=== PATIENT | female | born 1990 | race Caucasian/White ===

== ENCOUNTER 2020-07-16 18:49 | Emergency (ER) | payer OTHER, BC ==
[2020-07-16 19:01] VITALS: BP 129/88
[2020-07-16] MEDS ORDERED: LIDOCAINE 1% INJ-PF (10 MG/ML) 30 ML SDV INJ ONE (19:22)
[2020-07-16] MEDS ORDERED: IBUPROFEN 800 MG TABLET PO ONE (19:23)
--- NOTE | 2020-07-16 19:24 | ER Document Report ---
HPI - HPI Patient complains to provider of: left thumb laceration Time Seen by Provider: 07/16/20 19:17 Pain Level: 2 Notes: 30-year-old female to the emergency department with complaints of a left thumb laceration that occurred just prior to arrival. 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 She states that she needed to 2 inch wrap instead of a 4 inch. Thus, she took a scalpel and try to cut the wrap in half. Unfortunately, she cut her arm. She is up-to-date on her tetanus shot. She denies any other injuries. She is right-hand dominant. - CONSTITUTIONAL Constitutional: DENIES: Fever, Chills - EENT EENT: DENIES: Sore Throat, Ear Pain, Congestion - NEURO Neurology: DENIES: Headache, Weakness, Vision blurred, Dizzinesss / Vertigo - CARDIOVASCULAR Cardiovascular: DENIES: Chest pain - RESPIRATORY Respiratory: DENIES: Trouble Breathing, Coughing - GASTROINTESTINAL Gastrointestinal: DENIES: Abdominal Pain, Nausea, Patient vomiting, Diarrhea - MUSCULOSKELETAL Musculoskeletal: REPORTS: Extremity pain Notes: left thumb pain from laceration - DERM Skin Color: Normal Skin Problems: Laceration - laceration to the distal portion of the left thumb Past Medical History - General Information source: Patient - Social History Smoking Status: Never Smoker Frequency of alcohol use: Occasional Family History: Reviewed & Not Pertinent Patient has homicidal ideation: No Vertical Provider Document - CONSTITUTIONAL Agree With Documented VS: Yes Exam Limitations: No Limitations General Appearance: WD/WN, No Apparent Distress - HEENT HEENT: Atraumatic, Normocephalic, PERRLA - NECK Neck: Normal Inspection, Supple - RESPIRATORY Respiratory: Breath Sounds Normal, No Respiratory Distress. negative: Rales, Rhonchi, Wheezing - CARDIOVASCULAR Cardiovascular: Regular Rate, Regular Rhythm, No Murmur - GI/ABDOMEN Gastrointestinal: Abdomen Soft, Abdomen Non-Tender - MUSCULOSKELETAL/EXTREMETIES Notes: There is a 2 cm laceration to the distal portion of the left thumb. Does not involve the nail. It is oozing a little bit of blood. There is no evidence for tendon laceration. There is 5 out of 5 strength against resistance in testing of the flexor tendons as well as extensor tendon. No snuffbox tenderness. Cap refill is less than 2-second. There is no evidence for vascular damage. Radial pulses intact and equal. Handgrip is 5 out of 5 bilaterally. - NEURO Level of Consciousness: Awake, Alert, Appropriate - DERM Integumentary: Warm, Dry, Laceration - see MS for details on thumb laceration Course - Re-evaluation Re-evalutation: 07/16/20 21:19 Impression: Left thumb laceration. Patient tolerated repair well. 3 sutures were placed. Suture removal in 7 days. Return if any worsening symptoms. Patient agrees - Vital Signs Vital signs: Temp Pulse Resp BP Pulse Ox 97.7 F 80 16 129/88 H 99 07/16/20 19:00 07/16/20 19:00 07/16/20 19:00 07/16/20 19:00 07/16/20 19:00 Procedures - Laceration/Wound Repair Left Finger Thumb Time completed: 21:19 Wound length (cm): 2 Wound's Depth, Shape: Superficial Laceration pre-procedure: Sterile drapes applied, Shur-Clens applied Anesthetic type: 1% Lidocaine Volume Anesthetic (mLs): 2 Wound explored: Clean, No foreign body removed Wound Debrided: Minimal Wound Repaired With: Sutures Suture Size/Type: 4:0, Nylon Number of Sutures: 3 Post-procedure wound care: Other - nonadhesive with finger splint Post-procedure NV exam normal: Yes Complications: No Discharge - Discharge Clinical Impression: Laceration of left thumb Qualifiers: Encounter type: initial encounter Damage to nail status: without damage Foreign body presence: without foreign body Qualified Code(s): S61.012A - Laceration without foreign body of left thumb without damage to nail, initial encounter Condition: Stable Disposition: HOME, SELF-CARE Instructions: Laceration Care ([facility]) Additional Instructions: Keep wound clean and dry. Wash daily with warm soapy water. Suture removal in 7 days. Tylenol or Motrin for pain. Return if worsening pain, fevers, redness, pus from wound. Prescriptions: Ibuprofen [Motrin 600 mg Tablet] 600 mg PO Q8HP PRN #24 tablet PRN Reason: [facility]errals[facility] [Provider Group] - Follow up in 1 week (follow up for primary care)
[2020-07-16] MEDS ORDERED: BACITRACIN ZINC OINTMENT 15 GM TP ONE (20:56)
== END 2020-07-16 21:24 | disposition home or self-care (01) ==
LOC: ER 18:49
DX: S61.012A Laceration without foreign body of left thumb without damage to nail, initial encounter (principal); W26.0XXA Contact with knife, initial encounter; Y99.0 Civilian activity done for income or pay
CPT/HCPCS: 99284; 12001; J3490

== ENCOUNTER 2020-09-30 14:37 | Emergency (ER) | payer BC, OTHER ==
--- NOTE | 2020-09-30 15:13 | ER Document Report ---
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 Patient states over the last 2 days she has had some harder stools but has noticed bright red blood from the rectum not the vagina when moving her bowels. PHYSICAL EXAMINATION: Rectal and exam deferred in triage I have greeted and performed a rapid initial assessment of this patient. A comprehensive ED assessment and evaluation of the patient, analysis of test results and completion of medical decision making process will be conducted by an additional ED providers. Please note that clinical decision making for this patient was made during the 2019 pandemic of novel coronavirus which caused a significant strain on the healthcare system including at this particular facility. Criteria for admission discharge and level of care decisions as well as treatment decisions have necessarily changed - Related Data Allergies/Adverse Reactions: No Known Allergies Allergy (Verified 09/30/20 15:09) Physical Exam - Vital signs Vitals: Temp Pulse Resp BP Pulse Ox 98.2 F 85 18 113/72 99 09/30/20 14:40 09/30/20 14:40 09/30/20 14:40 09/30/20 14:40 09/30/20 14:40 Course - Vital Signs Vital signs: Temp Pulse Resp BP Pulse Ox 98.2 F 85 18 113/72 99 09/30/20 14:40 09/30/20 14:40 09/30/20 14:40 09/30/20 14:40 09/30/20 14:40
[2020-09-30 15:38] LABS: ABSOLUTE LYMPHOCYTES (AUTO) 1.6 10^3/uL (0.5-4.7); ABSOLUTE MONOCYTES (AUTO) 0.8 10^3/uL (0.1-1.4); ABSOLUTE NEUT (AUTO) 10.9 10^3/uL (1.7-8.2); BASOPHILS % (AUTO) 0.3 % (0-2); EOSINOPHILS % (AUTO) 0.2 % (0-6); HEMOGLOBIN 13.1 g/dL (12.0-15.5); LYMPHOCYTES % (AUTO) 11.8 % (13-45); MEAN CORPUSCULAR HGB CONC 34.4 g/dL (32.0-36.0); MEAN CORPUSCULAR VOLUME 87 fl (80-97); PLATELET COUNT 319 10^3/uL (150-450); RED BLOOD COUNT 4.35 10^6/uL (3.72-5.28); RED CELL DISTRIBUTION WIDTH 12.9 % (11.5-14.0); SEGMENTED NEUTROPHILS % (AUTO) 81.7 % (42-78); TOTAL CELLS COUNTED % (AUTO) 100 %; WHITE BLOOD COUNT 13.4 10^3/uL (4.0-10.5)
[2020-09-30 15:52] LABS: INTERNATIONAL RATION (INR) 0.94; PROTHROMBIN TIME 12.8 SEC (11.4-15.4)
[2020-09-30 15:55] LABS: ALBUMIN 4.2 g/dL (3.5-5.0); ALKALINE PHOSPHATASE 54 U/L (38-126); ASPARTATE AMINO TRANSFERASE 23 U/L (14-36); BILIRUBIN,DIRECT 0.1 mg/dL (0.0-0.4); BILIRUBIN,TOTAL 0.3 mg/dL (0.2-1.3); BLOOD UREA NITROGEN 12 mg/dL (7-20); CALCIUM 9.5 mg/dL (8.4-10.2); CARBON DIOXIDE 29 mmol/L (22-30); GLUCOSE 95 mg/dL (75-110); TOTAL PROTEIN 6.8 g/dL (6.3-8.2)
[2020-09-30 16:00] LABS: CHLORIDE 100 mmol/L (98-107)
[2020-09-30 16:01] LABS: ANION GAP 4 (5-19)
--- NOTE | 2020-09-30 17:01 | ER Document Report ---
ED General - General Chief Complaint: Abdominal Cramping Stated Complaint: BLOOD IN STOOL Time Seen by Provider: 09/30/20 15:10 - HPI Notes: Patient is a 30-year-old female presents emergency department for evaluation of rectal pain and bleeding. Her pain bleeding started 3 days ago. She has bright red blood with every bowel movement. She has excruciating rectal pain. She has been trying [id number] medications without any significant relief. She denies any fevers or chills. No nausea or vomiting. She just found out a few days ago that she is approximately 6 weeks . This is her first . She was told by her primary care provider, before she moved to the area, that she had "polyps" around her rectum. She has not had a colonoscopy, does want to have a referral to gastroenterology. - Related Data Allergies/Adverse Reactions: No Known Allergies Allergy (Verified 09/30/20 15:09) Home Medications: . folic acid. iron Past Medical History - General Information source: Patient - Social History Smoking Status: Never Smoker Chew tobacco use (# tins/day): No Frequency of alcohol use: None Drug Abuse: None Family History: Reviewed & Not Pertinent, Malignancy - Breast cancer, prostate cancer - Medical History Medical History: Negative Surgical Hx: Negative Review of Systems - Review of Systems Constitutional: No symptoms reported EENT: No symptoms reported Cardiovascular: No symptoms reported Respiratory: No symptoms reported Gastrointestinal: See HPI Genitourinary: No symptoms reported Female Genitourinary: See HPI Musculoskeletal: No symptoms reported Skin: No symptoms reported Neurological/Psychological: No symptoms reported Physical Exam - Vital signs Vitals: Temp Pulse Resp BP Pulse Ox 98.2 F 85 18 113/72 99 09/30/20 14:40 09/30/20 14:40 09/30/20 14:40 09/30/20 14:40 09/30/20 14:40 - Notes Notes: Vital signs reviewed, please refer to chart. Head is normocephalic, atraumatic. Pupils equal round, reactive to light. Neck is supple without meningismus. Heart is regular rate and rhythm. Lungs are clear to auscultation bilaterally. Abdomen is soft, nontender, normoactive bowel sounds throughout. Extremities without cyanosis, clubbing. Posterior calves are nontender. Peripheral pulses are equal. Skin is warm and dry. Patient is awake, alert, neurological exam is nonfocal. Rectal exam is performed with BLANK [place], present in the room. Patient with inflamed external hemorrhoidal tissue, no signs of thrombosis. Course - Re-evaluation Re-evalutation: 09/30/20 17:08 Patient presents emergency department for evaluation of rectal pain and bleeding. Her findings are most consistent with external hemorrhoids. I explained to the patient that she needs to start a bowel regimen that keeps her bowel movements soft. She is encouraged to drink more water, which will be helpful in her bowel regimen as well as with the . She is already taking iron supplementation. I told her that this is likely causing more c onstipation and hard stools, and I did not see that it was necessary at this point in her . She voiced understanding. She is told to try stool softeners if dietary changes are helpful. 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 She is to return to the emergency department for worsening or new concerning symptoms of any sort. - Vital Signs Vital signs: Temp Pulse Resp BP Pulse Ox 98.2 F 85 18 113/72 99 09/30/20 14:40 09/30/20 14:40 09/30/20 14:40 09/30/20 14:40 09/30/20 14:40 - Laboratory Results Result Diagrams: 09/30/20 15:20 09/30/20 15:20 Laboratory Results Interpreted: 09/30/20 09/30/20 15:20 15:20 WBC 13.4 H Lymph % (Auto) 11.8 L Absolute Neuts (auto) 10.9 H Seg Neutrophils % 81.7 H Sodium 133.4 L Anion Gap 4 L Critical Laboratory Results Reviewed: No Critical Results - Radiology Results Critical Radiology Results Reviewed: No Critical Results Discharge - Discharge Clinical Impression: Rectal bleeding, External hemorrhoids Condition: Stable Disposition: HOME, SELF-CARE Instructions: Rectal Bleeding, Unclear Cause ([facility]), Hemorrhoids ([facility]) Additional Instructions: Increase water intake. Try to keep stools soft. As discussed, limiting eating iron supplementation will probably help keep your stools soft and avoid constipation. Use suppositories as directed. Follow-up with primary care and [facility]. Return to the emergency department with worsening or new concerning symptoms of any sort. Prescriptions: Hydrocortisone Acetate [Anusol Hc 25 mg Supp.rect] 1 supp.rect [place] BID #14 supp.rect
[2020-09-30 17:38] VITALS: BP 125/63
== END 2020-09-30 17:37 | disposition home or self-care (01) ==
LOC: ER 14:37
DX: O99.619 Diseases of the digestive system complicating pregnancy, unspecified trimester (principal); K62.5 Hemorrhage of anus and rectum; K64.4 Residual hemorrhoidal skin tags; Z3A.00 Weeks of gestation of pregnancy not specified; Z79.899 Other long term (current) drug therapy
CPT/HCPCS: 36415; 80053; 85025; 85610; 99283